=== PATIENT | female | born 2000 | race Caucasian/White ===

== ENCOUNTER 2023-04-26 18:29 | Emergency (ER) | payer BC ==
[~2023-04-26] VITALS: Ht 170.2 cm; Wt 72.7 kg
[2023-04-26 18:35] VITALS: BP 106/68; TEMP 98.2
[2023-04-26] MEDS ORDERED: Ibuprofen 400 MG TAB PO ONE (18:45)
[2023-04-26] MEDS ORDERED: AlOH3/diphen/Lidoc/MgOH2/Simet Oral Susp 10 ML UD Syringe PO ONE (18:45)
[2023-04-26] MEDS ORDERED: Acetaminophen 325 MG TAB PO ONE (18:45)
[2023-04-26 20:02] LABS: MONOSCREEN NEGATIVE
[2023-04-26 20:34] VITALS: PULSE 88
== END 2023-04-26 20:34 | disposition home or self-care (01) ==
LOC: COL.ER 18:29
PROVIDERS: Nurse Practitioner Primary Care
DX: J02.9 Acute pharyngitis, unspecified (principal)

== ENCOUNTER 2023-08-14 08:44 | Emergency (ER) | payer BC ==
[~2023-08-14] VITALS: Ht 170.2 cm; Wt 70.0 kg
[2023-08-14] MEDS ORDERED: Acetaminophen 500 MG TAB PO ONE (09:15)
[2023-08-14 09:16] LABS: COLLECTION METHOD CLEAN CATCH
[2023-08-14 09:34] LABS: STREP A NEGATIVE
[2023-08-14 09:38] LABS: URINE APPEARANCE CLOUDY (CLEAR/HAZY); URINE BLOOD NEGATIVE (NEGATIVE); URINE COLOR YELLOW (YELLOW); URINE GLUCOSE NEGATIVE (NEGATIVE); URINE KETONE 1+ (NEGATIVE); URINE NITRATE NEGATIVE (NEGATIVE); URINE PROTEIN(semi-quant) NEGATIVE (NEGATIVE); URINE UROBILINOGEN 0.2 E.U/dL (0.2-1.0)
[2023-08-14] MEDS ORDERED: AMOXICILLIN 50500 MG PO (09:47)
[2023-08-14 09:54] VITALS: BP 103/65; PULSE 100; TEMP 99.9
== END 2023-08-14 09:54 | disposition home or self-care (01) ==
LOC: COL.ER 08:44
PROVIDERS: Personal Emergency Response Attendant
DX: O99.512 Diseases of the respiratory system complicating pregnancy, second trimester (principal); J02.9 Acute pharyngitis, unspecified; Z3A.19 19 weeks gestation of pregnancy